=== PATIENT | female | born 1925 | race Caucasian/White ===

== ENCOUNTER 2016-05-18 11:38 | Emergency (ER) | payer MEDICARE, MEDICAID ==
[2016-05-18] MEDS ORDERED: FENTANYL 250 MCG/5 ML VIAL ONE ×2 (12:13→16:39)
[2016-05-18] MEDS ORDERED: FENTANYL 100 MCG/2 ML VIAL ONE (12:14)
--- NOTE | 2016-05-18 12:29 | RADIOLOGY REPORT ---
HISTORY: Fall COMPARISON: None. FINDINGS: Frontal view of the pelvis and left lateral hip were performed. The frontal view shows normal alignment at the sacroiliac joints and pubic symphysis. Bones of the pe lvis are unremarkable. Focused imaging of the left hip shows a nondisplaced fracture at the junction of the femoral neck and intertrochanteric region. It is minimally displaced. No dislocation. IMPRESSION: Minimally displaced fracture involving the left hip at the junction of the neck and intertrochanteric region. Report called to Dr. Adams. Final Electronic Signature: This report was electronically signed by Reji Banerjee MD on 05/18/2016 12 :27 PM. mona /
--- NOTE | 2016-05-18 12:31 | RADIOLOGY REPORT ---
HISTORY: Fall COMPARISON: None. FINDINGS: 1 view of the chest obtained. There is no consolidation. There is no pleural effusion. There is no pneumothorax. There is mild cardiomegaly. There is no abnormality of the pulmonary vessels. There is no focal lung parenchymal nodule. There is no bone lesion. IMPRESSION: Cardiomegaly without edema, effusion or pneumothorax. Final Electronic Signature: This report was electronically signed by Reji Banerjee MD on 05/18/2016 12 :28 PM. mona /
[2016-05-18 12:32] LABS: BASOPHILS 0.3 % (0.0-2.0); EOSINOPHILS 0.2 % (0.0-6.0); HEMATOCRIT 38.9 % (36.0-48.0); HEMOGLOBIN 13.2 g/dL (12.0-16.0); LYMPHOCYTES 9.9 % (20.0-40.0); LYMPHOCYTES# 0.7 X 10^3uL (0.8-3.8); MEAN CELL VOLUME 86.3 fL (80.0-100.0); MEAN CORPUSCULAR HEMOGLOBIN 29.3 pg (29.0-35.0); MEAN PLATELET VOLUME 8.4 fL (7.4-10.4); MONOCYTES 5.2 % (2.0-10.0); MONOCYTES# 0.4 X 10^3uL (0.2-1.0); NEUTROPHILS 84.4 % (54.0-75.0); NEUTROPHILS# 6.5 X 10^3uL (2.6-6.7); PLATELET COUNT 184 X 10^3uL (130-440); RED BLOOD COUNT 4.51 X 10^6uL (4.20-6.10); RED CELL DISTRIBUTION WIDTH 14.2 % (11.5-14.5); WHITE BLOOD COUNT 7.6 X 10^3uL (3.9-10.7)
[2016-05-18 12:39] LABS: BLOOD UREA NITROGEN 17 mg/dL (7-17); CALCIUM 9.7 mg/dL (8.4-10.2); CHLORIDE 104 mmol/L (98-107); CREATININE 1.1 mg/dL (0.5-1.0); GLUCOSE 145 mg/dL (70-100); SODIUM 139 mmol/L (137-145)
--- NOTE | 2016-05-18 13:26 | ER PHYSICIAN DOCUMENTATION ---
Physician Documentation [facility] Name:Tatiana Rossi Age:89 yrs Sex:Female :1925 Arrival Date:05/18/2016 Time:11:38 BedTrauma-B Private MD:Alaina Wallace ED, Chris Disposition: 05/18/16 12:48 Transfer ordered to [facility]. Diagnosis is Hip Fracture - Acute, Left, Intertrochanteric. - Reason for transfer: Higher level of care. - Accepting physician is Stephanie Prather, Hospitalist;. - Condition is Fair. - Problem is new. - Symptoms are unchanged. COBRA Form completed? Yes Transfer - Mode of Transportation Ambulance HPI: 05/18 11:45 This 89 yrs old Female presents to ER via EMS with complaints of Fall Injury. cd 11:45 Details of fall: The patient fell from an upright position, while walking. Onset: The cd symptom(s)/episode began/occurred acutely, just prior to arrival. Associated injuries: The patient sustained left hip, contusion, decreased range of motion, painful injury. Associated signs and symptoms: The patient has no apparent associated signs or symptoms, Loss of consciousness: the patient experienced no loss of consciousness. Severity of symptoms: At their worst the symptoms were moderate, in the emergency department the symptoms have improved, mildly. The patient has not experienced similar symptoms in the past. Historical: - Allergies: Morphine; constipation; chest pain; Codeine; Namenda; Cymbalta; Remeron; - Home Meds: 1. amitriptyline 10 mg oral tab 1 tab Nightly 2. prednisone oral 1 tab once daily in the morning 3. Percocet 7.5-325 mg oral tab 1 tab every 6 hours for Pain 4. gemfibrozil 600 mg oral tab 1 tab 2 times per day 30 minutes before morning and evening meal 5. omeprazole 20 mg oral cpDR 1 cap once daily 6. metoprolol tartrate 50 mg oral tab 1 tab once daily with meals 7. venlafaxine 75 mg oral cp24 1 cap once daily with food 8. amlodipine 10 mg oral tab 1 tab once daily 9. levothyroxine 75 mcg oral cap 1 cap once daily - PMHx: CHRONIC PAIN; constipation; OSTEOARTHRITIS; diverticulosis; urinary incontinence; ANXIETY; cervical spondylosis; renal artery stenosis; dyslipidemia; Coronary artery disease; AAA; left ovarian cyst; hyperlipidemia; hemmorrhoids; fatigue; malaise; - PSHx: HYSTERECTOMY; CHOLECYSTECTOMY; - Tetanus: will f/u with PCP Will f/u with PCP. - Ebola Screening: : Patient negative for fever greater than or equal to 101.5 degrees Fahrenheit, and additional compatible Ebola Virus Disease symptoms. Patient denies exposure to infectious person. Patient denies travel to an Ebola-affected area in the 21 days before illness onset. . - Immunization history: Pneumococcal vaccine is up to date, Flu Vaccine < 1 year. - Social history: Smoking status: Patient states former smoker of tobacco. ROS: 12:36 Constitutional: Negative for chills, fever, poor PO intake. cd 12:36 MS/extremity: Positive for injury or acute deformity, contusion, decreased range of motion, pain, of the left hip. 12:36 Neuro: Negative for acute changes. 12:36 All other systems are negative. Exam: 12:37 Head/Face: Normocephalic, atraumatic. cd ENT: Nares patent. No nasal discharge, no septal abnormalities noted. Tympanic membranes are normal and external auditory canals are clear. Oropharynx with no redness, swelling, or masses, exudates, or evidence of obstruction, uvula midline. Mucous membranes moist. Neck: Trachea midline, no thyromegaly or masses palpated, and no cervical lymphadenopathy. Supple, full range of motion without nuchal rigidity, or vertebral point tenderness. No Meningismus. Chest/axilla: Normal chest wall appearance and motion. Nontender with no deformity. No lesions are appreciated. Cardiovascular: Regular rate and rhythm with a normal S1 and S2. No gallops, murmurs, or rubs. Normal PMI, no JVD. No pulse deficits. Respiratory: Lungs have equal breath sounds bilaterally, clear to auscultation and percussion. No rales, rhonchi or wheezes noted. No increased work of breathing, no retractions or nasal flaring. Abdomen/GI: Soft, non-tender, with normal bowel sounds. No distension or tympany. No guarding or rebound. No evidence of tenderness throughout. Back: No spinal tenderness. No costovertebral tenderness. Full range of motion. 12:37 Skin: Warm, dry with normal turgor. Normal color with no rashes, no lesions, and no cd evidence of cellulitis. 12:37 Constitutional: The patient appears alert, awake, non-diaphoretic, well nourished, anxious, in obvious distress, moderately distressed. 12:37 Musculoskeletal/extremity: Extremities: grossly normal except: noted in the left hip: contusion, decreased ROM, pain, ROM: limited passive range of motion due to pain, in the left hip, Circulation is intact in all extremities. Sensation intact. Weight bearing: is unable to bear weight. 12:37 Neuro: Orientation: is normal, Mentation: is normal, Cranial nerves: CN II- XII are normal as tested, Motor: is normal, Sensation: is normal. Vital Signs: 11:59 BP 139 / 79; Pulse 69; Resp 16; Temp 97.6; Pulse Ox 97% on 2 lpm NC; Weight 43.54 kg; lp Height 4 ft. 11 in. (149.86 cm); Pain 8/10; 12:24 BP 154 / 77; Pulse 70; Resp 16; Pulse Ox 96% on 2 lpm NC; lp 13:09 BP 153 / 72; Pulse 69; Resp 16; Pulse Ox 92% on 2 lpm NC; lp 13:15 BP 153 / 72; Pulse 70; Resp 16; Pulse Ox 96% on 2 lpm NC; lp 11:59 Body Mass Index 19.39 (43.54 kg, 149.86 cm) lp Abingdon Coma Score: 12:37 Eye Response: spontaneous(4). Verbal Response: oriented(5). Motor Response: obeys cd commands(6). Total: 15. Trauma Score (Adult): 11:59 Eye Response: spontaneous(1); Verbal Response: oriented(1); Motor Response: obeys lp commands(2); Systolic BP: > 89 mm Hg(4); Respiratory Rate: 10 to 29 per min(4); Abingdon Score: 15; Trauma Score: 12 MDM: 11:43 Patient medically screened. cd 11:55 Data interpreted: Pulse oximetry: on room air is 87 %. Interpretation: hypoxia. Plan: cd O2 by NC applied. 12:23 EKG attached lp 12:38 Differential diagnosis: contusion, fracture, of Left Hip. cd 12:39 Data reviewed: vital signs, nurses notes, EMS record, old medical records, EKG, cd radiologic studies, plain films, and as a result, I will *Transfer Patient prescribe pain medication, Fentanyl. 12:40 Counseling: I had a detailed discussion with the patient and/or guardian regarding: the cd historical points, exam findings, and any diagnostic results supporting the discharge/admit diagnosis, lab results, radiology results, the need to transfer to another facility, for higher level of care. 12:45 Response to treatment: the patient's symptoms have mildly improved after treatment, and cd as a result, I will transfer to [facility]. The patient has a history of CAD, three stents, chronic Angina, a 3.3 cm AAA, It is best, with her comorbidities, to have her Left IT Hip Fracture repaired at [facility] where she can have Cardiology and Pulmonary consultations and ICU support if needed.. 12:46 Physician consultation: Chris Damian MD, Trauma Surgeon was called at 12:30, was cd contacted at 12:40, regarding admission, to the floor, consult, patient's condition, after a discussion of the case, a recommendation for transfer for higher level of care is made, would like consultation with . Patient will be admitted to the Medicine / Hospitalist Service with Orthopedics consulting.. 12:58 Other consultation: Full report was given to Stephanie Prather MD Hospitalist. 05/18 12:35 Order name: CBC AUTO DIF, MDIF/RMOR IF IND; Complete Time: 12:49 EDMS 05/18 12:48 Interpretation: Normal Except: NEUTROPHILS 84.4; Mild Left Shift. 05/18 12:40 Order name: BASIC METABOLIC PANEL; Complete Time: 12:49 EDMS 05/18 12:49 Interpretation: Normal Except: GLUCOSE 145; Hyperglycemia. 05/18 12:44 Order name: PROTIME/INR; Complete Time: 12:49 EDMS 05/18 12:49 Interpretation: Normal. 05/18 12:31 Order name: HIP;W/PEL 2-3 [place] [id number]; Complete Time: 12:32 EDMS 05/18 12:32 Order name: CHEST; SINGLE VIEW [id number]; Complete Time: 12:32 EDMS 05/18 11:43 Order name: Iv Saline Lock; Complete Time: 12:08 05/18 11:43 Order name: Cardiac Monitoring - Continuous; Complete Time: 12:08 04/05 11:43 Order name: Pulse Ox Continuous; Complete Time: 12:08 cd 05/18 11:44 Order name: Oxygen; Complete Time: 12:08 cd 05/18 11:44 Order name: EKG - 12 Lead; Complete Time: 12:08 cd Dispensed Medications: 12:07 Drug: fentaNYL (PF) 25 mcg; Route: IVP; Site: right forearm; lp 13:03 Follow up: Response: Pain is decreased lp Signatures: Francisca Mosley RN RN lp Main Martínez MD MD
--- NOTE | 2016-05-18 13:26 | ER NURSING DOCUMENTATION ---
Nurse's Notes [facility] Name:Tatiana Rossi Age:89 yrs Sex:Female :1925 Arrival Date:05/18/2016 Time:11:38 BedTrauma-B Private MD:Alaina Wallace Diagnosis:Hip Fracture-Acute, Left, Intertrochanteric Presentation: 05/18 11:48 Acuity: CORINNE 2 tg 11:55 Presenting complaint: Patient states: L hip pain EMS states: Fall at home with L hip lp injury. Care prior to arrival: Placed on backboard. IV initiated. Mechanism of Injury: Fall from standing position. Trauma event details: Injury occurred in the [facility]. 11:55 Method Of Arrival: EMS: 410 lp 12:18 Transition of care: Home. lp Historical: - Allergies: Morphine; constipation; chest pain; Codeine; Namenda; Cymbalta; Remeron; - Home Meds: 1. amitriptyline 10 mg oral tab 1 tab Nightly 2. prednisone oral 1 tab once daily in the morning 3. Percocet 7.5-325 mg oral tab 1 tab every 6 hours for Pain 4. gemfibrozil 600 mg oral tab 1 tab 2 times per day 30 minutes before morning and evening meal 5. omeprazole 20 mg oral cpDR 1 cap once daily 6. metoprolol tartrate 50 mg oral tab 1 tab once daily with meals 7. venlafaxine 75 mg oral cp24 1 cap once daily with food 8. amlodipine 10 mg oral tab 1 tab once daily 9. levothyroxine 75 mcg oral cap 1 cap once daily - PMHx: CHRONIC PAIN; constipation; OSTEOARTHRITIS; diverticulosis; urinary incontinence; ANXIETY; cervical spondylosis; renal artery stenosis; dyslipidemia; Coronary artery disease; AAA; left ovarian cyst; hyperlipidemia; hemmorrhoids; fatigue; malaise; - PSHx: HYSTERECTOMY; CHOLECYSTECTOMY; - Tetanus: will f/u with PCP Will f/u with PCP. - Ebola Screening: : Patient negative for fever greater than or equal to 101.5 degrees Fahrenheit, and additional compatible Ebola Virus Disease symptoms. Patient denies exposure to infectious person. Patient denies travel to an Ebola-affected area in the 21 days before illness onset. . - Immunization history: Pneumococcal vaccine is up to date, Flu Vaccine < 1 year. - Social history: Smoking status: Patient states former smoker of tobacco. Screenin:01 Abuse screen: Denies threats or abuse. Denies injuries from another. Nutritional lp screening: No deficits noted. Tuberculosis screening: No symptoms or risk factors identified. 12:18 Infectious Disease Risk None. lp Primary Survey: 11:58 Airway: patent. Breathing/Chest: Respiratory pattern: regular, Respiratory effort: lp spontaneous, Breath sounds: clear, bilaterally. Chest inspection: symmetrical rise and fall of the chest. Circulation: Cardiac rhythm: sinus rhythm Pulses: palpable right radial artery, right posterior tibial artery, left radial artery and left posterior tibial artery. Secondary Survey: 11:59 HEENT: No deficits noted. Gastrointestinal: No deficits noted. : No deficits noted. lp Musculoskeletal: Circulation, motion, and sensation intact Capillary refill < 3 seconds Range of motion limited in left hip. Assessment: 11:56 General: Appears uncomfortable, Behavior is appropriate for age. Pain: Complains of lp pain in left hip Pain does not radiate. Pain currently is 8 out of 10 on a pain scale. Pain began 1 hour ago. Neuro: Level of Consciousness is awake, alert, Oriented to person, place, event, [employer] are equal bilaterally in left leg(s) Gait is Unable to bear weight at this time. EENT: No deficits noted. Cardiovascular: No deficits noted. Respiratory: No deficits noted. GI: No deficits noted. : No deficits noted. Derm: No deficits noted. Musculoskeletal: Circulation, motion, and sensation intact Capillary refill < 3 seconds Range of motion limited in left hip Tenderness present in left hip Reports pain in left hip. 12:27 Cardiovascular: Heart tones S1 S2 Murmur Pulses are all present. Respiratory: Airway is lp patent Respiratory effort is even, unlabored, Respiratory pattern is regular, Breath sounds are clear bilaterally. Vital Signs: 11:59 BP 139 / 79; Pulse 69; Resp 16; Temp 97.6; Pulse Ox 97% on 2 lpm NC; Weight 43.54 kg; lp Height 4 ft. 11 in. (149.86 cm); Pain 8/10; 12:24 BP 154 / 77; Pulse 70; Resp 16; Pulse Ox 96% on 2 lpm NC; lp 13:09 BP 153 / 72; Pulse 69; Resp 16; Pulse Ox 92% on 2 lpm NC; lp 13:15 BP 153 / 72; Pulse 70; Resp 16; Pulse Ox 96% on 2 lpm NC; lp 11:59 Body Mass Index 19.39 (43.54 kg, 149.86 cm) lp Benedict Coma Score: 12:37 Eye Response: spontaneous(4). Verbal Response: oriented(5). Motor Response: obeys cd commands(6). Total: 15. Trauma Score (Adult): 11:59 Eye Response: spontaneous(1); Verbal Response: oriented(1); Motor Response: obeys lp commands(2); Systolic BP: > 89 mm Hg(4); Respiratory Rate: 10 to 29 per min(4); Bing Score: 15; Trauma Score: 12 ED Course: 11:39 Patient arrived in ED. lm3 11:39 Alaina Wallace is Private Physician. lm3 11:43 Main Martínez MD is Attending Physician. cd 11:48 Triage completed. tg 11:55 Francisca Mosley RN is Primary Nurse. lp 12:01 Valuables Given to family. Patient has correct armband on for positive identification. lp Placed in gown. Bed in low position. Call light in reach. Side rails up X2. 12:19 Port Xray Completed. ms 12:19 Valuables Remains with patient. lp 12:23 EKG attached lp 13:34 arranger assembler on. Pulse ox on. NIBP on. Cardiac Monitoring On for Nurse Monitoring lp only. Administered Medications: 12:07 Drug: fentaNYL (PF) 25 mcg; Route: IVP; Site: right forearm; lp 13:03 Follow up: Response: Pain is decreased lp Outcome: 12:33 [facility] lp 12:33 Condition: stable 12:33 Instructed on need for transfer 12:48 ER care complete, transfer ordered by . cd 13:25 Patient left the ED. lp 13:37 Report given to Arnulfo Mcgregor at [facility] lp Signatures: Murphy Jaramillo RN RN Francisca Mosley RN RN Main Martínez MD MD cd Strickland, Mary ms Hohua, Bre Champion lm3
== END 2016-05-18 13:25 | disposition short-term general hospital (02) ==
LOC: ER 11:38
DX: S72.142A Displaced intertrochanteric fracture of left femur, initial encounter for closed fracture (principal); S70.02XA Contusion of left hip, initial encounter; W19.XXXA Unspecified fall, initial encounter; Y93.01 Activity, walking, marching and hiking; R09.02 Hypoxemia; R73.9 Hyperglycemia, unspecified; G89.29 Other chronic pain; M19.90 Unspecified osteoarthritis, unspecified site; I25.10 Atherosclerotic heart disease of native coronary artery without angina pectoris; Z79.899 Other long term (current) drug therapy; Z99.89 Dependence on other enabling machines and devices; Z99.81 Dependence on supplemental oxygen; Z74.3 Need for continuous supervision
CPT/HCPCS: 71010; 80048; 85025; 85610; 93005; 93010; 96374; 99285; A0425; A0427

== ENCOUNTER 2016-05-25 09:31 | Inpatient (IN) | payer MEDICARE, MEDICAID ==
[2016-05-25] MEDS ORDERED: HOME MEDICATION LIST NEEDED 1 EA EACH MC ONE (11:22)
[2016-05-25] MEDS: ACETAMINOPHEN 325 MG TABLET PO PRN ×3 (14:40→23:31)
[2016-05-25] MEDS ORDERED: ACETAMINOPHEN PO PRN (15:17)
[2016-05-25] MEDS ORDERED: [UNRECOGNIZED DRUG - OTHER] PO PRN (15:17)
[2016-05-25] MEDS ORDERED: OXYCODONE HCL PO PRN (15:17)
--- NOTE | 2016-05-25 17:46 | HISTORY & PHYSICAL ---
DATE OF ADMISSION: 05/25/16 ATTENDING PHYSICIAN: Ashley Martin MD CHIEF COMPLAINT: Status post intramedullary nailing for left hip fracture in need of rehab. HISTORY OF PRESENT ILLNESS: Patient is an 89-year-old female patient, generally followed at [facility], who tripped over her dogs bed at home on 05/18/16 and was transferred to [facility] for surgical treatment of a left hip fracture. She underwent surgery on 05/19/16 with intramedullary nail. Postoperative complications seem to have been some dizziness and lightheadedness for which medications were adjusted, in particular discontinuation of Amitriptyline, and reduction in dose of Gabapentin. Her surgery was carried out at [facility] due to multiple medical comorbidities. She has done reasonably well since that time, and returns to [place] for ongoing Physical Therapy and Occupational Therapy , with the goal of returning home to live independently with the intermittent assistance of her granddaughter. She apparently has a history of chronic pain with multiple pain complaints in the past, but has by report from the [facility] Hospitalist, done fairly well in terms of pain control. Patient is a poor historian, and records were obtained both from [facility] and from her primary care provider, Lesia Wallace at [facility]. Currently the patient is resting comfortably in bed and seems to be doing quite well. She tolerated the journey up well. ALLERGIES: Morphine, Codeine (diarrhea), Namenda (diarrhea), Cymbalta (diarrhea) , Remeron (increased depression). MEDICATIONS AT DISCHARGE Oxycodone APAP 7.5-325 mg 1 tablet 4 times daily as needed. Gemfibrozil 650 mg twice daily. Pantoprazole 40 mg daily. Sucralfate 1 gram daily. Prednisone 5 mg daily. Venlafaxine ER 75 mg daily at h.s. Enoxaparin 40 mg subcutaneous daily. Melatonin 3 mg at h.s. Gabapentin 100 mg 3 times daily. Amlodipine 10 mg daily. Risperidone 0.5 mg at h.s. Levothyroxine 75 mcg p.o. daily. Acetaminophen 650 mg every 6 hours as needed and scheduled 3 times daily. MiraLax 1 packet daily. Metoprolol succinate ER 50 mg daily. PAST MEDICAL HISTORY (obtained from [facility] medical chart) 1. Chronic pain for which the patient has taken multiple medications including Percocet and Neurontin with chronic complaints of chest pressure and pain. 2. Anxiety disorder with a history of panic disorder. 3. Gastroesophageal reflux disease. 4. Hypothyroidism. 5. Hypertension. 6. Cervical spondylosis. 7. Dyslipidemia. 8. Osteoporosis. 9. Coronary artery disease without specifics. 10. Renal artery stenosis. 11. Aortic aneurysm which was evaluated during her [facility] hospitalization and found to be 4.[address] with recommendation of CT surgery evaluation as an outpatient as it had been only 3.3 cm in 2010. 12. Chronic insomnia. 13. Chronic constipation. 14. Renal insufficiency. 15. Internal hemorrhoids with a history of bleeding. PAST SURGICAL HISTORY 1. Status post intramedullary nail of left femur fracture 2016 as above. 2. Hysterectomy in 1968 for benign reasons. 3. Cholecystectomy 1968. 4. Left renal artery stent 06/2006. 5. Stent to the LAD 06/2006. FAMILY HISTORY: Somewhat vague. Mother of old age with no specific problems. Father had colon cancer history. Patient has 3 sons and 2 daughters. SOCIAL HISTORY: She is . She has a history of minimal smoking, 1-2 cigarettes daily. She has no history of illegal drug use. She drinks very little alcohol. She has 5 children as noted above and lives on her own with her dog. REVIEW OF SYSTEMS: Complains of generalized pain which apparently is a chronic issue with this patient. Today she has some headache, chest pain and leg pain and indicates all 3 areas, but looks completely comfortable. She does not have any weakness. She denies any problems swallowing. No sore throat. No visual changes. She denies any shortness of breath. She has the chest pain as noted above. No palpitations. She has no abdominal pain. She denies any problems with constipation. She denies any dysuria or hematuria. She has pain in her left thigh and hip. She denies any other joint pain at this time. She denies any lightheadedness or dizziness or changes in vision. PHYSICAL EXAMINATION VITAL SIGNS: Temperature 37.1, blood pressure 139/77, pulse 85, respiratory rate 15, O2 saturation 92% on 2 liters nasal cannula. GENERAL: Alert and appears very comfortable. HEENT: Extraocular movements are intact. Sclera are anicteric. Pupils are equal and round. Slightly miotic. Diminished activity to light. Oropharynx is moist. Tongue is midline. NECK: No jugular venous distention. No bruits. No adenopathy. No thyromegaly. LUNGS: Clear bilaterally. CARDIOVASCULAR: Regular rate and rhythm without murmurs, rubs or gallops noted. ABDOMEN: Soft, nontender. No organomegaly. No masses noted. EXTREMITIES: Dorsalis pedis pulses are 2+. Tibialis posterior pulses are 1+. Surgical incision on the left lateral thigh with phuc still in place. It is fairly long but without oozing on the dressing and minimal tender with very little swelling of the thigh. NEUROLOGIC: Well oriented but I suspect some memory issues, although I did not formally test her today. Cranial nerves are grossly intact. Motor strength is 5/ 5 in the upper extremities and 5/5 in the right lower extremity. Left lower extremity, patient was hesitant because of pain. Deep tendon reflexes are 1+ and symmetric. Toes are downgoing. DATA: Patient had a mild anemia with a hemoglobin of 11.6 on laboratory data from the hospital. ASSESSMENT AND PLAN 1. Status post intramedullary nailing of left hip fracture. Patient appears to be moving around the bed very well and will have ongoing physical therapy and occupational therapy assessments as soon as possible. Her goal is to go home independently as she was previously, and I suspect she will do well. 2. History of chronic pain with some reduction in her medication regimen from her medications at [facility] clinic, particularly because of lightheadedness and dizziness. 3. Deep vein thrombosis prophylaxis is being given with Lovenox at this time. 4. Gastroesophageal reflux disease, no complaints and patient will be continued on Pantoprazole 20 mg which is our formulary medication. 5. History of coronary artery disease without complaints of active problems. 6. History of renal artery stenosis with a stent placed and blood pressure is reasonably controlled at this time. 7. History of anxiety. Patient will be continued on her Venlafaxine and her melatonin, other drugs for sleeping have been discontinued. 8. Hypothyroidism. Will continue patient on Levoxyl at this time, but will not draw a TSH given the recent hospitalization, which may not reflect a stable TSH state. 9. Code status is full code at this time. 10. Ultimate goal is for the patient to return to her primary care physician at [facility] once she is able to be discharged. MTDD
[2016-05-25] MEDS: RISPERIDONE 0.5 MG TABLET PO SCH (20:35)
[2016-05-25] MEDS: MELATONIN 3 MG TABLET PO SCH (20:35)
[2016-05-25] MEDS: GABAPENTIN 100 MG CAPSULE PO SCH ×2 (20:35→23:28)
[2016-05-25] MEDS: VENLAFAXINE ER 75 MG CAPSULE PO SCH (20:35)
[2016-05-25] MEDS ORDERED: GABAPENTIN 100 MG CAPSULE PO SCH (21:00)
[2016-05-25] MEDS ORDERED: GEMFIBROZIL 600 MG PO SCH (21:00)
[2016-05-25] MEDS ORDERED: ACETAMINOPHEN 325 MG TABLET PO SCH (21:00)
[2016-05-25] MEDS: NON-FORMULARY MEDICATION (Sucralfate [Carafate] 1 GM) PO SCH (21:43)
[2016-05-26 06:06] LABS: BLOOD UREA NITROGEN 53 mg/dL (7-17); CALCIUM 9.6 mg/dL (8.4-10.2); CHLORIDE 101 mmol/L (98-107); CREATININE 1.1 mg/dL (0.5-1.0); GLUCOSE 116 mg/dL (70-100); POTASSIUM 5.1 mmol/L (3.5-5.1); SODIUM 136 mmol/L (137-145)
[2016-05-26] MEDS: PANTOPRAZOLE 40 MG TABLET PO SCH (06:52)
[2016-05-26] MEDS: GABAPENTIN 100 MG CAPSULE PO SCH ×3 (06:53→21:19)
[2016-05-26] MEDS: ACETAMINOPHEN 325 MG TABLET PO PRN ×3 (07:02→21:19)
[2016-05-26 07:46] LABS: BASOPHILS 0.3 % (0.0-2.0); EOSINOPHILS 2.3 % (0.0-6.0); EOSINOPHILS# 0.2 X 10^3uL (0.0-0.4); HEMATOCRIT 31.2 % (36.0-48.0); HEMOGLOBIN 10.6 g/dL (12.0-16.0); LYMPHOCYTES 19.9 % (20.0-40.0); LYMPHOCYTES# 1.5 X 10^3uL (0.8-3.8); MEAN CELL VOLUME 87.1 fL (80.0-100.0); MEAN CORPUS. HGB CONCENTRATION 33.9 g/dL (32.0-36.0); MEAN CORPUSCULAR HEMOGLOBIN 29.5 pg (29.0-35.0); MEAN PLATELET VOLUME 8.8 fL (7.4-10.4); MONOCYTES 7.5 % (2.0-10.0); MONOCYTES# 0.6 X 10^3uL (0.2-1.0); NEUTROPHILS# 5.4 X 10^3uL (2.6-6.7); PLATELET COUNT 309 X 10^3uL (130-440); RED BLOOD COUNT 3.58 X 10^6uL (4.20-6.10); RED CELL DISTRIBUTION WIDTH 13.9 % (11.5-14.5); WHITE BLOOD COUNT 7.7 X 10^3uL (3.9-10.7)
[2016-05-26] MEDS ORDERED: NORMAL SALINE 1,000 ML IV SCH (08:00)
--- NOTE | 2016-05-26 08:04 | PROGRESS NOTE: IM APSO ---
Assessment and Plan - Date of Encounter Date of Encounter: 05/26/16 (1) Hip fracture requiring operative repair Status: Acute Assessment and plan: Seems to be progressing well, continue efforts with PT and OT. Pain control adequate. Patient demonstrates some impulsivity and has required placement of bed and chair alarms for safety. Current Visit: Yes (2) Hypertension Status: Chronic Assessment and plan: Remains controlled with current medication regimen, continue same. Current Visit: Yes (3) Renal insufficiency Status: Acute Assessment and plan: Patient has a sudden elevation in her BUN which suggests dehydration. She will be given 500 ml of NS today. I am also holding her Gemfibrozil, which may be unsuitable in light of her kidney function. There is a notation in her previous charting that she had an episode of severe renal insufficiency in the past, so this is likely acute on chronic, particularly in light of her renal artery stent, and needs to be closely monitored. Current Visit: Yes (4) Dementia Status: Suspected Assessment and plan: Patient is taking Risperidone for unclear reasons, and demonstrates some difficulty with recall. She is also hard of hearing, which may be contributing. No behavioral issues other than impulsivity at this time. I have suggested that the staff move the patient closer to the nursing station when possible, and that we consider video monitoring if needed. Current Visit: Yes - Time Spent With Patient Total time spent with greater than 50% in coordination of care (as documented) at patient's floor/unit and/or counseling patient: 25 - 35 minutes Estimated anticipated discharge: next week if doing well IM: PN Subjective Interval history: Reports that she did not sleep well last night, but nursing comment is that patient was asleep every time she was checked. Patient has ongoing central chest pain of unknown etiology, steady, "aching," unrelated to eating or to activity. General: confusion, pain HEENT: no headache Cardiovascular: chest pain Respiratory: no SOB Gastrointestinal: no abdominal pain Musculoskeletal: pain (left hip, mild) Neurological: no headache IM: PN Objective Exam - I&O/Vital Signs I&O: Intake & Output 05/25/16 05/26/16 05/26/16 21:59 05:59 13:59 Intake Total 300 Output Total 900 Balance -600 Weight 43.998 kg Intake: Oral 300 Output: Urine 900 Other: Urine Color Yellow Stool Size Moderate Stool Characteristics Soft Green Voiding Method Toilet Toilet Toilet # Voids 1 # Bowel Movements 1 Vital Signs: Last Vital Signs Temp 36.1 C L 05/26/16 06:48 Pulse 71 05/26/16 06:48 Resp 16 05/26/16 06:48 BP 133/65 05/26/16 06:48 Pulse Ox 94 05/26/16 06:48 Oxygen Flow Rate 2 Oxygen Delivery Method Nasal Cannula - Constitutional General appearance: Present: thin - Head Head exam: Present: normal inspection - Eye Eye exam: Present: EOMI Pupils: Present: PERRL - ENT ENT exam: Present: mucous membranes moist - Respiratory Respiratory exam: Present: CTAB - Cardiovascular Cardiovascular exam: Present: RRR - GI/Abdominal GI/Abdominal exam: Present: normal bowel sounds, soft. Absent: tenderness - Extremities Exam Extremities exam: Present: tenderness (left lateral thigh). Absent: calf tenderness, edema - Psychiatric Psychiatric exam: Present: normal affect - Skin Skin exam: Present: other (skin tear right elbow, ecchymosis right inner thigh) - Lab Labs: Laboratory Last Values WBC 7.7 X 10^3uL (3.9-10.7) 05/26/16 05:00 RBC 3.58 X 10^6uL (4.20-6.10) L 05/26/16 05:00 Hgb 10.6 g/dL (12.0-16.0) L 05/26/16 05:00 Hct 31.2 % (36.0-48.0) L 05/26/16 05:00 MCV 87.1 fL (80.0-100.0) 05/26/16 05:00 MCH 29.5 pg (29.0-35.0) 05/26/16 05:00 MCHC 33.9 g/dL (32.0-36.0) 05/26/16 05:00 RDW 13.9 % (11.5-14.5) 05/26/16 05:00 Plt Count 309 X 10^3uL (130-440) 05/26/16 05:00 MPV 8.8 fL (7.4-10.4) 05/26/16 05:00 Neutrophils % 70.0 % (54.0-75.0) 05/26/16 05:00 Lymphocytes % 19.9 % (20.0-40.0) L 05/26/16 05:00 Eosinophils % 2.3 % (0.0-6.0) 05/26/16 05:00 Basophils % 0.3 % (0.0-2.0) 05/26/16 05:00 Neutrophils # 5.4 X 10^3uL (2.6-6.7) 05/26/16 05:00 Lymphocytes # 1.5 X 10^3uL (0.8-3.8) 05/26/16 05:00 Monocytes 7.5 % (2.0-10.0) 05/26/16 05:00 Monocytes # 0.6 X 10^3uL (0.2-1.0) 05/26/16 05:00 Eosinophils # 0.2 X 10^3uL (0.0-0.4) 05/26/16 05:00 Basophils # 0.0 X 10^3uL (0.0-0.1) 05/26/16 05:00 Sodium 136 mmol/L (137-145) L 05/26/16 05:00 Potassium 5.1 mmol/L (3.5-5.1) D 05/26/16 05:00 Chloride 101 mmol/L (98-107) 05/26/16 05:00 Carbon Dioxide 25 mmol/L (22-30) 05/26/16 05:00 BUN 53 mg/dL (7-17) H D 05/26/16 05:00 Creatinine 1.1 mg/dL (0.5-1.0) H 05/26/16 05:00 GFR Calculation Not Reportable 05/26/16 05:00 Glucose 116 mg/dL (70-100) H 05/26/16 05:00 Calcium 9.6 mg/dL (8.4-10.2) 05/26/16 05:00 Quality Questions - VTE Prophylaxis Assessment VTE Present on Admission?: No Patient at risk for venous thromboembolism?: Yes VTE Risk Level: High Risk Pharmaceutical VTE prophylaxis contraindication reason: N/A- VTE prophylaxsis ordered Mechanical VTE prophylaxis contraindication reason: not indicated (1) Hip fracture requiring operative repair Qualifiers: Encounter type: initial encounter Fracture type: closed Laterality: left Qualified Code(s): S72.002A - Fracture of unspecified part of neck of left femur , initial encounter for closed fracture (2) Hypertension Qualifiers: 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
[2016-05-26] MEDS: AMLODIPINE BESYLATE 5 MG TABLET PO SCH (08:15)
[2016-05-26] MEDS: predniSONE 5 MG TABLET PO SCH (08:16)
[2016-05-26] MEDS: POLYETHYLENE GLYCOL 3350 17 GM POWD.PACK PO SCH (08:17)
[2016-05-26] MEDS: ENOXAPARIN SODIUM 40 MG/0.4 ML SYR SUBCUT SCH (08:17)
[2016-05-26] MEDS: NON-FORMULARY MEDICATION (Sucralfate [Carafate] 1 GM) PO SCH (08:18)
[2016-05-26] MEDS: LEVOTHYROXINE 75 MCG TABLET PO SCH (08:21)
[2016-05-26] MEDS ORDERED: predniSONE 1 MG TABLET PO SCH (09:00)
[2016-05-26] MEDS ORDERED: NON-FORMULARY MEDICATION (Omeprazole [Omeprazole] 20 MG) PO SCH (09:00)
[2016-05-26] MEDS ORDERED: NORMAL SALINE FLUSH 250 ML ONE (13:02)
[2016-05-26] MEDS: SUCRALFATE 1 GM TAB PO SCH ×2 (16:34→21:19)
[2016-05-26 19:47] LABS: URINE APPEARANCE CLEAR; URINE BACTERIA NONE SEEN (<10/hpf); URINE BILIRUBIN NEGATIVE (NEGATIVE); URINE BLOOD NEGATIVE (NEGATIVE); URINE COLOR YELLOW; URINE GLUCOSE NORMAL (NEGATIVE); URINE KETONE NEGATIVE (NEGATIVE); URINE LEUKOCYTE ESTERASE NEGATIVE (NEGATIVE); URINE MUCUS NONE SEEN (Up to 25%); URINE NITRITE NEGATIVE (NEGATIVE); URINE PROTEIN NEGATIVE (NEG - TRACE); URINE RBC NONE SEEN (0-5/hpf); URINE SQUAMOUS EPITHELIAL CELL 0-5/hpf (<= 15/hpf); URINE UROBILINOGEN 0.2mg/dL (Normal) (NEG-1mg/dL); URINE WBC NONE SEEN (0-4/hpf)
[2016-05-26] MEDS: MELATONIN 3 MG TABLET PO SCH (21:19)
[2016-05-26] MEDS: VENLAFAXINE ER 75 MG CAPSULE PO SCH (21:19)
[2016-05-26] MEDS: RISPERIDONE 0.5 MG TABLET PO SCH (21:19)
[2016-05-27 05:56] LABS: BLOOD UREA NITROGEN 49 mg/dL (7-17); CALCIUM 9.2 mg/dL (8.4-10.2); CHLORIDE 107 mmol/L (98-107); CREATININE 1.1 mg/dL (0.5-1.0); GLUCOSE 102 mg/dL (70-100); POTASSIUM 4.8 mmol/L (3.5-5.1); SODIUM 137 mmol/L (137-145)
[2016-05-27] MEDS: PANTOPRAZOLE 40 MG TABLET PO SCH (06:40)
[2016-05-27] MEDS: GABAPENTIN 100 MG CAPSULE PO SCH ×3 (06:40→21:10)
[2016-05-27] MEDS: LEVOTHYROXINE 75 MCG TABLET PO SCH (06:40)
[2016-05-27] MEDS: ACETAMINOPHEN 325 MG TABLET PO PRN ×3 (06:41→23:28)
[2016-05-27] MEDS: AMLODIPINE BESYLATE 5 MG TABLET PO SCH (08:56)
[2016-05-27] MEDS: SUCRALFATE 1 GM TAB PO SCH ×2 (08:56→21:09)
[2016-05-27] MEDS: predniSONE 5 MG TABLET PO SCH (08:57)
[2016-05-27] MEDS: ENOXAPARIN SODIUM 40 MG/0.4 ML SYR SUBCUT SCH (08:57)
[2016-05-27] MEDS: POLYETHYLENE GLYCOL 3350 17 GM POWD.PACK PO SCH (08:58)
--- NOTE | 2016-05-27 21:00 | PROGRESS NOTE: IM APSO ---
Assessment and Plan - Date of Encounter Date of Encounter: 05/27/16 (1) Hip fracture requiring operative repair Status: Acute Assessment and plan: I am pleased that the patient seems to be doing well, and is able to cooperate with activities. She may be able to go home towards the end of next week. Current Visit: Yes (2) Hypertension Status: Chronic Assessment and plan: Remains controlled, continue medications as is. Current Visit: Yes (3) Renal insufficiency Status: Acute Assessment and plan: BUN and creatinine mildly improved. Hold Gemfibrozil and monitor. Lovenox adjusted to renal dosing of 30mg daily. Current Visit: Yes (4) Dementia Status: Suspected Assessment and plan: Seems to have adapted well to the swingbed setting. Current Visit: Yes - Time Spent With Patient Total time spent with greater than 50% in coordination of care (as documented) at patient's floor/unit and/or counseling patient: less than 15 minutes Estimated anticipated discharge: next week if doing well IM: PN Subjective Interval history: Continues to do well, seems to be cooperating with PT and OT, and has been moved to a room closer to the nurses station because of safety concerns regarding impulsivity. I have had 500ml of NS administered, due to a BUN of 53 and evidence for dehydration, with slightly decreased sodium, and mildly increased creatinine. Additionally, Gemfibrozil was discontinued, due to concerns of renal insufficiency. General: pain HEENT: no headache Cardiovascular: chest pain (central aching pain, complaint for many years. ) Respiratory: no SOB Gastrointestinal: no abdominal pain Musculoskeletal: pain (left hip, mild) Neurological: no headache IM: PN Objective Exam - I&O/Vital Signs I&O: Intake & Output 05/27/16 05/27/16 05/27/16 05:59 13:59 21:59 Intake Total 1100 1578 Output Total 850 1600 Balance 250 -22 Intake: Oral 1100 1578 Output: Urine 850 1600 Other: Urine Appearance Clear Clear Clear Urine Color Pale Pale Yellow Stool Size Moderate Small Stool Characteristics Soft Formed Green Voiding Method Toilet Toilet Toilet Vital Signs: Last Vital Signs Temp 36.7 C 05/27/16 19:00 Pulse 87 05/27/16 19:00 Resp 20 05/27/16 19:00 BP 146/69 05/27/16 19:00 Pulse Ox 95 05/27/16 19:00 Oxygen Flow Rate 2 Oxygen Delivery Method Room Air - Constitutional General appearance: Present: thin - Head Head exam: Present: normal inspection - Eye Eye exam: Present: EOMI Pupils: Present: PERRL - ENT ENT exam: Present: mucous membranes moist - Respiratory Respiratory exam: Present: CTAB - Cardiovascular Cardiovascular exam: Present: RRR - GI/Abdominal GI/Abdominal exam: Present: normal bowel sounds, soft. Absent: tenderness - Extremities Exam Extremities exam: Present: tenderness (left lateral thigh). Absent: calf tenderness, edema - Psychiatric Psychiatric exam: Present: normal affect - Skin Skin exam: Present: other (skin tear right elbow, ecchymosis right inner thigh) - Lab Labs: Laboratory Last Values WBC 7.7 X 10^3uL (3.9-10.7) 05/26/16 05:00 RBC 3.58 X 10^6uL (4.20-6.10) L 05/26/16 05:00 Hgb 10.6 g/dL (12.0-16.0) L 05/26/16 05:00 Hct 31.2 % (36.0-48.0) L 05/26/16 05:00 MCV 87.1 fL (80.0-100.0) 05/26/16 05:00 MCH 29.5 pg (29.0-35.0) 05/26/16 05:00 MCHC 33.9 g/dL (32.0-36.0) 05/26/16 05:00 RDW 13.9 % (11.5-14.5) 05/26/16 05:00 Plt Count 309 X 10^3uL (130-440) 05/26/16 05:00 MPV 8.8 fL (7.4-10.4) 05/26/16 05:00 Neutrophils % 70.0 % (54.0-75.0) 05/26/16 05:00 Lymphocytes % 19.9 % (20.0-40.0) L 05/26/16 05:00 Eosinophils % 2.3 % (0.0-6.0) 05/26/16 05:00 Basophils % 0.3 % (0.0-2.0) 05/26/16 05:00 Neutrophils # 5.4 X 10^3uL (2.6-6.7) 05/26/16 05:00 Lymphocytes # 1.5 X 10^3uL (0.8-3.8) 05/26/16 05:00 Monocytes 7.5 % (2.0-10.0) 05/26/16 05:00 Monocytes # 0.6 X 10^3uL (0.2-1.0) 05/26/16 05:00 Eosinophils # 0.2 X 10^3uL (0.0-0.4) 05/26/16 05:00 Basophils # 0.0 X 10^3uL (0.0-0.1) 05/26/16 05:00 Sodium 137 mmol/L (137-145) 05/27/16 05:25 Potassium 4.8 mmol/L (3.5-5.1) 05/27/16 05:25 Chloride 107 mmol/L (98-107) 05/27/16 05:25 Carbon Dioxide 25 mmol/L (22-30) 05/27/16 05:25 BUN 49 mg/dL (7-17) H 05/27/16 05:25 Creatinine 1.1 mg/dL (0.5-1.0) H 05/27/16 05:25 GFR Calculation Not Reportable 05/27/16 05:25 Glucose 102 mg/dL (70-100) H 05/27/16 05:25 Calcium 9.2 mg/dL (8.4-10.2) 05/27/16 05:25 Urine Color Yellow 05/26/16 Unknown Urine Appearance Clear 05/26/16 Unknown Urine pH 6.0 (5-7) 05/26/16 Unknown Ur Specific [place] 1.010 (0.001-1.035) 05/26/16 Unknown Urine Protein Negative (NEG - TRACE) 05/26/16 Unknown Urine Ketones Negative (NEGATIVE) 05/26/16 Unknown Urine Blood Negative (NEGATIVE) 05/26/16 Unknown Urine Nitrate Negative (NEGATIVE) 05/26/16 Unknown Urine Bilirubin Negative (NEGATIVE) 05/26/16 Unknown Urine Urobilinogen 0.2mg/dl (normal) (NEG-1mg/dL) 05/26/16 Unknown Ur Leukocyte Esterase Negative (NEGATIVE) 05/26/16 Unknown Urine RBC None seen (0-5/hpf) 05/26/16 Unknown Urine WBC None seen (0-4/hpf) 05/26/16 Unknown Ur Squamous Epith Cells 0-5/hpf (<= 15/hpf) 05/26/16 Unknown Urine Bacteria None seen (<10/hpf) 05/26/16 Unknown Urine Mucus None seen (Up to 25%) 05/26/16 Unknown Urine Glucose Normal (NEGATIVE) 05/26/16 Unknown (1) Hip fracture requiring operative repair Qualifiers: Encounter type: initial encounter Fracture type: closed Laterality: left Qualified Code(s): S72.002A - Fracture of unspecified part of neck of left femur , initial encounter for closed fracture (2) Hypertension Qualifiers: 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
[2016-05-27] MEDS: VENLAFAXINE ER 75 MG CAPSULE PO SCH (21:10)
[2016-05-27] MEDS: RISPERIDONE 0.5 MG TABLET PO SCH (21:11)
[2016-05-27] MEDS: MELATONIN 3 MG TABLET PO SCH (21:11)
[2016-05-28] MEDS: PANTOPRAZOLE 40 MG TABLET PO SCH (06:34)
[2016-05-28] MEDS: GABAPENTIN 100 MG CAPSULE PO SCH ×3 (06:34→21:25)
[2016-05-28] MEDS: LEVOTHYROXINE 75 MCG TABLET PO SCH (06:34)
[2016-05-28] MEDS: ENOXAPARIN SODIUM 30 MG/0.3 ML SYR SUBCUT SCH (09:33)
[2016-05-28] MEDS: POLYETHYLENE GLYCOL 3350 17 GM POWD.PACK PO SCH (09:33)
[2016-05-28] MEDS: AMLODIPINE BESYLATE 5 MG TABLET PO SCH (09:33)
[2016-05-28] MEDS: predniSONE 5 MG TABLET PO SCH (09:33)
[2016-05-28] MEDS: SUCRALFATE 1 GM TAB PO SCH ×2 (09:33→21:25)
[2016-05-28] MEDS: ACETAMINOPHEN 325 MG TABLET PO PRN ×2 (10:31→23:58)
[2016-05-28] MEDS: VENLAFAXINE ER 75 MG CAPSULE PO SCH (21:24)
[2016-05-28] MEDS: RISPERIDONE 0.5 MG TABLET PO SCH (21:24)
[2016-05-28] MEDS: MELATONIN 3 MG TABLET PO SCH (21:25)
[2016-05-29] MEDS: GABAPENTIN 100 MG CAPSULE PO SCH ×3 (06:33→21:17)
[2016-05-29] MEDS: PANTOPRAZOLE 40 MG TABLET PO SCH (06:33)
[2016-05-29] MEDS: LEVOTHYROXINE 75 MCG TABLET PO SCH (06:33)
[2016-05-29] MEDS: predniSONE 5 MG TABLET PO SCH (08:32)
[2016-05-29] MEDS: SUCRALFATE 1 GM TAB PO SCH ×2 (08:32→21:17)
[2016-05-29] MEDS: POLYETHYLENE GLYCOL 3350 17 GM POWD.PACK PO SCH (08:32)
[2016-05-29] MEDS: ACETAMINOPHEN 325 MG TABLET PO PRN (08:32)
[2016-05-29] MEDS: AMLODIPINE BESYLATE 5 MG TABLET PO SCH (08:32)
[2016-05-29] MEDS: ENOXAPARIN SODIUM 30 MG/0.3 ML SYR SUBCUT SCH (08:32)
[2016-05-29] MEDS: VENLAFAXINE ER 75 MG CAPSULE PO SCH (21:17)
[2016-05-29] MEDS: MELATONIN 3 MG TABLET PO SCH (21:17)
[2016-05-29] MEDS: RISPERIDONE 0.5 MG TABLET PO SCH (21:17)
[2016-05-30] MEDS: ACETAMINOPHEN 325 MG TABLET PO PRN ×3 (00:06→20:55)
[2016-05-30] MEDS: LEVOTHYROXINE 75 MCG TABLET PO SCH (05:33)
[2016-05-30] MEDS: GABAPENTIN 100 MG CAPSULE PO SCH ×2 (05:34→20:56)
[2016-05-30] MEDS: PANTOPRAZOLE 40 MG TABLET PO SCH (05:34)
[2016-05-30 06:52] LABS: BASOPHILS 0.4 % (0.0-2.0); EOSINOPHILS 1.2 % (0.0-6.0); EOSINOPHILS# 0.1 X 10^3uL (0.0-0.4); HEMATOCRIT 32.2 % (36.0-48.0); HEMOGLOBIN 10.8 g/dL (12.0-16.0); LYMPHOCYTES 22.7 % (20.0-40.0); LYMPHOCYTES# 2.3 X 10^3uL (0.8-3.8); MEAN CELL VOLUME 86.8 fL (80.0-100.0); MEAN CORPUS. HGB CONCENTRATION 33.6 g/dL (32.0-36.0); MEAN CORPUSCULAR HEMOGLOBIN 29.1 pg (29.0-35.0); MEAN PLATELET VOLUME 8.4 fL (7.4-10.4); MONOCYTES 7.5 % (2.0-10.0); MONOCYTES# 0.8 X 10^3uL (0.2-1.0); NEUTROPHILS 68.2 % (54.0-75.0); PLATELET COUNT 379 X 10^3uL (130-440); RED BLOOD COUNT 3.71 X 10^6uL (4.20-6.10); WHITE BLOOD COUNT 10.2 X 10^3uL (3.9-10.7)
[2016-05-30 07:12] LABS: BLOOD UREA NITROGEN 43 mg/dL (7-17); CALCIUM 9.2 mg/dL (8.4-10.2); CHLORIDE 106 mmol/L (98-107); GLUCOSE 86 mg/dL (70-100); POTASSIUM 4.6 mmol/L (3.5-5.1); SODIUM 138 mmol/L (137-145)
--- NOTE | 2016-05-30 08:00 | PROGRESS NOTE: IM APSO ---
Assessment and Plan - Date of Encounter Date of Encounter: 05/30/16 (1) Hip fracture requiring operative repair Status: Acute Assessment and plan: Has made excellent progress. Considering discharge this week, with follow up with Orthopedics and staple removal. Will need Lovenox through June 06, and has a mild postoperative anemia and I will start some iron and vitamin C. Patient states she is fatigued. Current Visit: Yes (2) Hypertension Status: Chronic Current Visit: Yes (3) Renal insufficiency Status: Acute Assessment and plan: Has been mainly well controlled, mild elevation today. Continuing on prehospitalization medications. Current Visit: Yes (4) Dementia Status: Suspected Assessment and plan: I do not have clear documentation regarding the need for Risperidone, although I have obtained the old records. No evidence for behavioral disturbance in general. Current Visit: Yes - Time Spent With Patient Total time spent with greater than 50% in coordination of care (as documented) at patient's floor/unit and/or counseling patient: 16-24 minutes Estimated anticipated discharge: Mon or IM: PN Subjective Interval history: Patient appears to have done well over the weekend, and is ambulating 150 feet and making good progress to becoming independent for transfer and ambulation using a walker. She remains anemic, and would probably benefit from some iron supplementation. General: fatigue, pain (minimal today) HEENT: no headache Cardiovascular: no chest pain Respiratory: no SOB Gastrointestinal: no abdominal pain Musculoskeletal: pain (left hip, mild to minimal) Neurological: no headache IM: PN Objective Exam - I&O/Vital Signs I&O: Intake & Output 05/29/16 05/30/16 05/30/16 21:59 05:59 13:59 Intake Total 620 400 Output Total 500 900 Balance 120 -500 Weight 43.998 kg Intake: Oral 500 400 Oral Supplement 120 Output: Urine 500 900 Other: Urine Appearance Clear Clear Urine Color Yellow Yellow Stool Size Moderate Moderate Stool Characteristics Soft Soft Voiding Method Toilet Toilet # Voids 2 # Bowel Movements 1 Vital Signs: Last Vital Signs Temp 36.6 C 05/30/16 06:03 Pulse 78 05/30/16 06:03 Resp 17 05/30/16 06:03 BP 150/80 05/30/16 06:03 Pulse Ox 91 05/30/16 06:03 Oxygen Flow Rate 2 Oxygen Delivery Method Room Air - Constitutional General appearance: Present: thin - Head Head exam: Present: normal inspection - Eye Eye exam: Present: EOMI Pupils: Present: PERRL - ENT ENT exam: Present: mucous membranes moist - Respiratory Respiratory exam: Present: CTAB - Cardiovascular Cardiovascular exam: Present: RRR - GI/Abdominal GI/Abdominal exam: Present: normal bowel sounds, soft. Absent: tenderness - Extremities Exam Extremities exam: Present: tenderness (left lateral thigh). Absent: calf tenderness, edema - Psychiatric Psychiatric exam: Present: normal affect - Skin Skin exam: Present: other (skin tear right elbow, ecchymosis right inner thigh) - Lab Labs: Laboratory Last Values WBC 10.2 X 10^3uL (3.9-10.7) 05/30/16 06:00 RBC 3.71 X 10^6uL (4.20-6.10) L 05/30/16 06:00 Hgb 10.8 g/dL (12.0-16.0) L 05/30/16 06:00 Hct 32.2 % (36.0-48.0) L 05/30/16 06:00 MCV 86.8 fL (80.0-100.0) 05/30/16 06:00 MCH 29.1 pg (29.0-35.0) 05/30/16 06:00 MCHC 33.6 g/dL (32.0-36.0) 05/30/16 06:00 RDW 14.0 % (11.5-14.5) 05/30/16 06:00 Plt Count 379 X 10^3uL (130-440) 05/30/16 06:00 MPV 8.4 fL (7.4-10.4) 05/30/16 06:00 Neutrophils % 68.2 % (54.0-75.0) 05/30/16 06:00 Lymphocytes % 22.7 % (20.0-40.0) 05/30/16 06:00 Eosinophils % 1.2 % (0.0-6.0) 05/30/16 06:00 Basophils % 0.4 % (0.0-2.0) 05/30/16 06:00 Neutrophils # 7.0 X 10^3uL (2.6-6.7) H 05/30/16 06:00 Lymphocytes # 2.3 X 10^3uL (0.8-3.8) 05/30/16 06:00 Monocytes 7.5 % (2.0-10.0) 05/30/16 06:00 Monocytes # 0.8 X 10^3uL (0.2-1.0) 05/30/16 06:00 Eosinophils # 0.1 X 10^3uL (0.0-0.4) 05/30/16 06:00 Basophils # 0.0 X 10^3uL (0.0-0.1) 05/30/16 06:00 Sodium 138 mmol/L (137-145) 05/30/16 06:00 Potassium 4.6 mmol/L (3.5-5.1) 05/30/16 06:00 Chloride 106 mmol/L (98-107) 05/30/16 06:00 Carbon Dioxide 23 mmol/L (22-30) 05/30/16 06:00 BUN 43 mg/dL (7-17) H 05/30/16 06:00 Creatinine 1.0 mg/dL (0.5-1.0) 05/30/16 06:00 GFR Calculation Not Reportable 05/30/16 06:00 Glucose 86 mg/dL (70-100) 05/30/16 06:00 Calcium 9.2 mg/dL (8.4-10.2) 05/30/16 06:00 Urine Color Yellow 05/26/16 Unknown Urine Appearance Clear 05/26/16 Unknown Urine pH 6.0 (5-7) 05/26/16 Unknown Ur Specific [place] 1.010 (0.001-1.035) 05/26/16 Unknown Urine Protein Negative (NEG - TRACE) 05/26/16 Unknown Urine Ketones Negative (NEGATIVE) 05/26/16 Unknown Urine Blood Negative (NEGATIVE) 05/26/16 Unknown Urine Nitrate Negative (NEGATIVE) 05/26/16 Unknown Urine Bilirubin Negative (NEGATIVE) 05/26/16 Unknown Urine Urobilinogen 0.2mg/dl (normal) (NEG-1mg/dL) 05/26/16 Unknown Ur Leukocyte Esterase Negative (NEGATIVE) 05/26/16 Unknown Urine RBC None seen (0-5/hpf) 05/26/16 Unknown Urine WBC None seen (0-4/hpf) 05/26/16 Unknown Ur Squamous Epith Cells 0-5/hpf (<= 15/hpf) 05/26/16 Unknown Urine Bacteria None seen (<10/hpf) 05/26/16 Unknown Urine Mucus None seen (Up to 25%) 05/26/16 Unknown Urine Glucose Normal (NEGATIVE) 05/26/16 Unknown (1) Hip fracture requiring operative repair Qualifiers: Encounter type: initial encounter Fracture type: closed Laterality: left Qualified Code(s): S72.002A - Fracture of unspecified part of neck of left femur , initial encounter for closed fracture (2) Hypertension Qualifiers: 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
[2016-05-30] MEDS: AMLODIPINE BESYLATE 5 MG TABLET PO SCH (08:26)
[2016-05-30] MEDS: POLYETHYLENE GLYCOL 3350 17 GM POWD.PACK PO SCH (08:26)
[2016-05-30] MEDS: ENOXAPARIN SODIUM 30 MG/0.3 ML SYR SUBCUT SCH (08:26)
[2016-05-30] MEDS: predniSONE 5 MG TABLET PO SCH (08:26)
[2016-05-30] MEDS: ASCORBIC ACID 500 MG TABLET PO SCH (08:26)
[2016-05-30] MEDS: CHOLECALCIFEROL 1,000 UNIT CAPSULE PO SCH (08:28)
[2016-05-30] MEDS: SUCRALFATE 1 GM TAB PO SCH ×2 (08:28→20:56)
[2016-05-30] MEDS: FERROUS SULFATE 325 MG TABLET PO SCH (14:29)
[2016-05-30] MEDS: RISPERIDONE 0.5 MG TABLET PO SCH (20:55)
[2016-05-30] MEDS: MELATONIN 3 MG TABLET PO SCH (20:55)
[2016-05-30] MEDS: VENLAFAXINE ER 75 MG CAPSULE PO SCH (20:55)
[2016-05-31] MEDS: PANTOPRAZOLE 40 MG TABLET PO SCH (06:12)
[2016-05-31] MEDS: LEVOTHYROXINE 75 MCG TABLET PO SCH (06:13)
[2016-05-31] MEDS: ENOXAPARIN SODIUM 30 MG/0.3 ML SYR SUBCUT SCH (08:00)
[2016-05-31] MEDS: predniSONE 5 MG TABLET PO SCH (08:00)
[2016-05-31] MEDS: SUCRALFATE 1 GM TAB PO SCH ×2 (08:00→20:19)
[2016-05-31] MEDS: AMLODIPINE BESYLATE 5 MG TABLET PO SCH (08:00)
[2016-05-31] MEDS: POLYETHYLENE GLYCOL 3350 17 GM POWD.PACK PO SCH (08:00)
[2016-05-31] MEDS: ASCORBIC ACID 500 MG TABLET PO SCH (08:01)
[2016-05-31] MEDS: CHOLECALCIFEROL 1,000 UNIT CAPSULE PO SCH (08:01)
--- NOTE | 2016-05-31 11:55 | RADIOLOGY REPORT ---
Three views of the left hip are compared with prior films dated 05/18/2016. There has been interval reduction and internal fixation of the intertrochanteric fracture, which is secured with a narciso and screw. Hardware is intact and in appropriate position. No other change is identified. IMPRESSION: Interval reduction and internal fixation of the left intertrochanteric fracture. [facility]
[2016-05-31] MEDS: FERROUS SULFATE 325 MG TABLET PO SCH (12:39)
[2016-05-31] MEDS: ACETAMINOPHEN 325 MG TABLET PO PRN ×2 (13:48→20:23)
--- NOTE | 2016-05-31 16:09 | CONSULTATION ---
DATE OF CONSULTATION: 05/31/16 REFERRING PHYSICIAN: Ashley Martin MD INFORMATION BROKER: Mehran Babin MD CHIEF COMPLAINT: Postoperative follow up for left hip fracture. HISTORY OF PRESENT ILLNESS: The patient is an 89-year-old female who sustained an intratrochanteric fracture of her left proximal femur. At the time of her injury, it was felt she was not safe to undergo surgery at this facility and therefore was transferred to [place] for definitive treatment. There she underwent intramedullary fixation of her left proximal femur. She did very well and was transferred back up to [facility] this week. PAST MEDICAL HISTORY 1. Chronic pain and chronic narcotic use. 2. Anxiety disorder. 3. Gastroesophageal reflux disease. 4. Hypothyroidism. 5. Hypertension. 6. Hyperlipidemia. 7. Osteoporosis. 8. Coronary artery disease. 9. Aortic aneurysm. 10. Renal insufficiency. MEDICATIONS Oxycodone. Gemfibrozil. Pantoprazole. Sucralfate. Penicillin. Venlafaxine. Lovenox. Melatonin. Gabapentin. Amlodipine. Risperidone. Levothyroxine. MiraLax. Metoprolol. ALLERGIES: Morphine, Codeine, Namenda, Cymbalta, Remeron. FAMILY HISTORY: Noncontributory. SOCIAL HISTORY: The patient normally lives here in [place] and was an independent ambulator prior to her injury. PHYSICAL EXAMINATION GENERAL: Frail-appearing senior female in no apparent distress. Alert and oriented. LOWER EXTREMITY: Two incision sites over the lateral aspect of the proximal thigh. Both incision sites are healed without drainage. Likewise, there is no more erythema. She has mild diffuse swelling in the left thigh. She does move her knee and ankle well and is otherwise neurovascularly intact. She is mildly tender to palpation over the proximal thigh. IMAGING: Plain radiographs of the hip reveal a short intramedullary fixation device which appears to be possibly a gamma nail. The device is well positioned and the fracture is essentially in anatomic alignment. There is not yet significant evidence of healing. There is no other acute abnormality. IMPRESSION: The patient is doing well following intramedullary fixation for a left intratrochanteric fracture of the proximal femur. PLAN: We can go ahead and follow her with you. She should continue her current weightbearing status, which is partial weightbearing. We will plan on checking repeat radiographs again in about 2 weeks to see if at that time there is more evidence of healing. Thank you again for asking me to evaluate this patient. TER[facility]
[2016-05-31] MEDS: GABAPENTIN 100 MG CAPSULE PO SCH (20:19)
[2016-05-31] MEDS: VENLAFAXINE ER 75 MG CAPSULE PO SCH (20:19)
[2016-05-31] MEDS: RISPERIDONE 0.5 MG TABLET PO SCH (20:19)
[2016-05-31] MEDS: MELATONIN 3 MG TABLET PO SCH (20:19)
[2016-06-01] MEDS: LEVOTHYROXINE 75 MCG TABLET PO SCH (05:58)
[2016-06-01] MEDS: PANTOPRAZOLE 40 MG TABLET PO SCH (05:58)
[2016-06-01 06:24] VITALS: BP 138/69; PULSE 71; RESP 20; TEMP 98.1; O2SAT 90
--- NOTE | 2016-06-01 07:48 | DC SUMMARY: IM Note ---
Discharge Summary: IM/Peds Provider: Date of Admission: 05/25/16 Admitting Provider: JILLIAN KU MD Attending Provider: JILLIAN KU MD Discharging Provider: JILLIAN KU MD Primary Care Provider: Discharge Date: 06/01/16 Consults: 05/25/16 11:22 Nutrition/Dietary Consult [CONS] Routine Reason: Swingbed Admission Protocol 05/31/16 07:31 Orthopedic Consult [CONS] Routine Reason: Status post IM nail for left hip fracture, now at day 12 post op. In need of Ortho evaluation and staple removal if cleared. - Diagnosis (1) Hip fracture requiring operative repair Status: Acute Qualifiers: Encounter type: initial encounter Fracture type: closed Laterality : left Qualified Code(s): S72.002A - Fracture of unspecified part of neck of left femur, initial encounter for closed fracture (2) Hypertension Status: Chronic Qualifiers: Hypertension type: renovascular hypertension Qualified Code(s): I15.0 - Renovascular hypertension (3) Renal insufficiency Status: Acute (4) Dementia Status: Suspected Qualifiers: Dementia behavioral disturbance: without behavioral disturbance (5) Abdominal aneurysm without mention of rupture Status: Acute Hospital Course: Patient was admitted for ongoing rehabilitation after a left hip fracture and IM nail repair by Dr. Nguyen at [facility]. Her postoperative course had been complicated by dizziness and orthostasis, and several of her home medications were discontinued/held/reduced in dose. In particular, her chronic Percocet use was discontinued. Dr. Jenkins, Orthopedist in [place], has kindly assumed care of the patient for Orthopedic follow up, since the patient has no transportation ability to the [place] to see Dr. Nguyen. Xrays were done, showing the hip repair to be doing well, and she will follow up with Dr. Jenkins in about two weeks. During her [facility] stay, the patient has done very well, and is ambulating with a walker. She will have ongoing HHC with PT, and will continue on Lovenox until June 06 per her surgeon. The patient has had very little pain while here, using minimal amounts of Oxycodone. This has caused me to question her chronic Percocet use, which was at a very high dose for an 89 year old with poor renal function, and certainly should not be continued. When I spoke with the patient's daughter about her mother, the first concern of the daughter was her mother's Percocet prescription , which I explained that her mother did not at all seem to need, and, frankly, I am concerned about the daughter's insistence in this regard. From reading the chart notes obtained from Yadiel, the patient has some chronic, unexplained central chest "aching" and some headaches, not warranting chronic narcotic use. I would recommend a welfare check for this patient when she is home. The plan is for the granddaughter to care for the patient in her home. Patient's hypertension has remained well controlled. Her renal function is poor , and she was given 500ml of normal saline on arrival, for evident dehydration. I have discontinued her Gemfibrozil, which is contraindicated with poor renal function, so that patient may need a different choice of lipid controlling medication. I assume the patient has not tolerated statins in the past. Patient is chronically taking Risperidone at , which I did not change. She did not exhibit any behavioral disturbances while here. Patient was noted to have an abdominal aortic aneurysm , infrarenal, at 4.9cm per CT at [facility], which had increased in size from 2011. Recommendation to have surgery evaluation after discharge. - Time Spent with Patient Total time spent providing and/or coordinating discharge services: Time with patient DS: Greater than 30 minutes Discharge - Patient/Caregiver Discharge Instructions Activity Level: WBAT Diet: Regular Follow up: JOYCE JENKINS MD [ACTIVE (Staff Physician)] - 06/06/16 8:45 am YADIEL,Provider [] - 06/09/16 9:00 am (PT HAS AN APPT WITH DAPHNEY BENITEZ ON @ 9AM ) Overall discharge status: patient is progressing back to baseline Home Medications: Ferrous Sulfate [Ferrous Sulfate*] 325 mg PO DAILY@12 #30 tablet Enoxaparin Sodium [LOVENOX 30mg/0.3mL*] 30 mg SUBCUT DAILY #6 syr Gabapentin [Neurontin*] 100 mg PO TID@0600,1400,2200 #90 capsule oxyCODONE HCL IR [Oxy Ir*] 5 mg PO QID PRN #30 tablet PRN Reason: Pain, Severe Able To Take Po Orders: Home Health Care Location: Determined By Patient Disposition: HOME, SELF-CARE Discharge Summary Data - Medication History Medication History: Home Medications Amlodipine Besylate [Norvasc*] 10 mg PO DAILY 05/25/16 Gabapentin [Neurontin*] 200 mg PO TID@0600,1400,2200 05/25/16 Gemfibrozil [Lopid] 600 mg PO BID 05/25/16 Levothyroxine [Synthroid*] 75 mcg PO DAILY 05/25/16 Magnesium Hydroxide [Milk of Magnesia*] 15 - 30 ml PO HS 05/25/16 Melatonin [Melatonin*] 3 mg PO HS 05/25/16 Pantoprazole [Pantoprazole Sodium*] 20 mg PO DAILY 05/25/16 Risperidone [Risperidone*] 0.5 mg PO HS 05/25/16 Sennosides/Docusate Sodium [Lucia-Colace] 1 - 2 tab PO BID 05/25/16 Sucralfate [Carafate] 1 gm PO TID@0600,1400,2200 05/25/16 Venlafaxine ER [Effexor Xr*] 75 mg PO HS 05/25/16 metoprolol SUCC ER [Toprol Xl*] 50 mg PO DAILY 05/25/16 oxyCODONE HCL/ACETAMINOPHEN [Percocet 5-325 mg Tablet] 1 each PO Q6H PRN predniSONE [Deltasone*] 5 mg PO DAILY 05/25/16 Inpatient Medications 05/25/16 11:22 Acetaminophen [Tylenol] 650 mg PO Q6H PRN 05/25/16 16:12 oxyCODONE HCL IR [Oxy Ir] 5 mg PO QID PRN 05/25/16 21:00 Melatonin 3 mg PO HS Risperidone [Risperdal] 0.5 mg PO HS Venlafaxine ER [Effexor Xr] 75 mg PO HS 05/26/16 06:30 Pantoprazole [Protonix] 20 mg PO BEFORE BREAKFAST 05/26/16 09:00 Amlodipine Besylate [Norvasc] 10 mg PO DAILY Levothyroxine [Synthroid] 75 mcg PO DAILY@30 Polyethylene Glycol 3350 [miraLAX] 17 gm PO DAILY metoprolol SUCC ER [topROL XL] 50 mg PO DAILY predniSONE [Deltasone] 5 mg PO DAILY 05/26/16 16:00 Sucralfate [Carafate] 1 gm PO BID 05/28/16 09:00 Enoxaparin Sodium [Lovenox] 30 mg SUBCUT DAILY 05/30/16 09:00 Ascorbic Acid [Vitamin C] 500 mg PO DAILY Cholecalciferol [Vitamin D3] 1,000 unit PO DAILY 05/30/16 12:00 Ferrous Sulfate 325 mg PO DAILY@12 05/30/16 21:00 Gabapentin [Neurontin] 100 mg PO HS Procedures and tests throughout hospitalization: Completed Lab Orders 05/26/16 UA W/ MICRO -CULTURE IF IND [URINE] Routine 05/26/16 05:00 BASIC METABOLIC PANEL [CHEM] AMDRAW CBC AUTO DIF, MDIF/RMOR IF IND [HEM] AMDRAW 05/27/16 05:25 BASIC METABOLIC PANEL [CHEM] AMDRAW 05/30/16 06:00 BASIC METABOLIC PANEL [CHEM] AMDRAW CBC AUTO DIF, MDIF/RMOR IF IND [HEM] AMDRAW Completed Imaging Orders 05/31/16 07:32 HIP;W/PEL 2-3 [place] [address] [RAD] Routine Pending Orders 05/25/16 11:22 Admit: Swing Bed Routine Activity: Ambulate with Assist TID Cleanse minor skin tears w/NS PRN Cover minor skin tears with PRN Obtain weight Q7D Oxygen by Nasal Cannula 2 L/MIN Resuscitation Status Routine Titrate Oxygen TITRATE B/W 90-95% Vital Signs QSHIFT VS Wedge cushion for positioning PRN Curing Press Operator Consult [CM] Routine Acetaminophen [Tylenol] 650 mg PO Q6H PRN Physical Therapy Eval and Treatment [PT] Routine 05/25/16 11:23 Occupation Therapy Eval and Treat [OT] Routine 05/25/16 16:12 oxyCODONE HCL IR [Oxy Ir] 5 mg PO QID PRN 05/25/16 21:00 Melatonin 3 mg PO HS Risperidone [Risperdal] 0.5 mg PO HS Venlafaxine ER [Effexor Xr] 75 mg PO HS 05/25/16 Lunch Regular [DIET] 05/26/16 06:30 Pantoprazole [Protonix] 20 mg PO BEFORE BREAKFAST 05/26/16 09:00 Amlodipine Besylate [Norvasc] 10 mg PO DAILY Levothyroxine [Synthroid] 75 mcg PO DAILY@0630 Polyethylene Glycol 3350 [miraLAX] 17 gm PO DAILY metoprolol SUCC ER [topROL XL] 50 mg PO DAILY predniSONE [Deltasone] 5 mg PO DAILY 05/26/16 09:30 Occupational Therapy Plan of Care [OT] Routine 05/26/16 13:16 Ensure Plus Supplement BID 05/26/16 16:00 Sucralfate [Carafate] 1 gm PO BID 05/28/16 09:00 Enoxaparin Sodium [Lovenox] 30 mg SUBCUT DAILY 05/30/16 09:00 Ascorbic Acid [Vitamin C] 500 mg PO DAILY Cholecalciferol [Vitamin D3] 1,000 unit PO DAILY 05/30/16 12:00 Ferrous Sulfate 325 mg PO DAILY@12 05/30/16 21:00 Gabapentin [Neurontin] 100 mg PO HS 05/31/16 07:31 Orthopedic Consult [CONS] Routine IM: Discharge Physical Exam - I&O/Vital Signs I&O: Intake & Output 05/31/16 06/01/16 06/01/16 21:59 05:59 13:59 Intake Total 120 Balance 120 Intake: Oral Supplement 120 Vital Signs: Last Vital Signs Temp 36.7 C 06/01/16 06:23 Pulse 71 06/01/16 06:23 Resp 20 06/01/16 06:23 BP 138/69 06/01/16 06:23 Pulse Ox 90 06/01/16 06:23 Oxygen Flow Rate 0 Oxygen Delivery Method Room Air - Constitutional General appearance: Present: thin - Head Head exam: Present: normal inspection - Eye Eye exam: Present: EOMI Pupils: Present: PERRL - ENT ENT exam: Present: mucous membranes moist - Respiratory Respiratory exam: Present: CTAB - Cardiovascular Cardiovascular exam: Present: RRR - GI/Abdominal GI/Abdominal exam: Present: normal bowel sounds, soft. Absent: tenderness - Extremities Exam Extremities exam: Present: tenderness (left lateral thigh). Absent: calf tenderness, edema - Psychiatric Psychiatric exam: Present: normal affect - Skin Skin exam: Present: other (small skin tear right elbow, some fading ecchymosis inner right thigh)
[2016-06-01] MEDS: AMLODIPINE BESYLATE 5 MG TABLET PO SCH (09:03)
[2016-06-01] MEDS: SUCRALFATE 1 GM TAB PO SCH (09:03)
[2016-06-01] MEDS: predniSONE 5 MG TABLET PO SCH (09:04)
[2016-06-01] MEDS: CHOLECALCIFEROL 1,000 UNIT CAPSULE PO SCH (09:05)
[2016-06-01] MEDS: ASCORBIC ACID 500 MG TABLET PO SCH (09:05)
[2016-06-01] MEDS: POLYETHYLENE GLYCOL 3350 17 GM POWD.PACK PO SCH (09:05)
[2016-06-01] MEDS: ENOXAPARIN SODIUM 30 MG/0.3 ML SYR SUBCUT SCH (09:05)
== END 2016-06-01 08:02 | disposition home or self-care (01) | DRG 561 ==
LOC: IN 14:00 → EDBD 14:00 → IN 05-26 08:40
PROVIDERS: ADMIT Internal Medicine; ATTEND Internal Medicine
DX: S72.142D Displaced intertrochanteric fracture of left femur, subsequent encounter for closed fracture with routine healing (principal); F41.8 Other specified anxiety disorders; E03.9 Hypothyroidism, unspecified; E78.5 Hyperlipidemia, unspecified; N18.9 Chronic kidney disease, unspecified; I13.10 Hypertensive heart and chronic kidney disease without heart failure, with stage 1 through stage 4 chronic kidney disease, or unspecified chronic kidney disease; G47.00 Insomnia, unspecified; K59.00 Constipation, unspecified; M81.0 Age-related osteoporosis without current pathological fracture; I71.4 Abdominal aortic aneurysm, without rupture; M47.892 Other spondylosis, cervical region; Z79.899 Other long term (current) drug therapy
CPT/HCPCS: 36415; 80048; 81001; 85025; J1650; J7030; J7512

== ENCOUNTER 2016-07-27 09:43 | Emergency (ER) | payer MEDICARE, MEDICAID ==
[2016-07-27] MEDS ORDERED: KETOROLAC TROMETHAMINE 30 MG/ML VIAL ONE (12:05)
--- NOTE | 2016-07-27 12:30 | ER NURSING DOCUMENTATION ---
Nurse's Notes [facility] Name:Tatiana Rossi Age:89 yrs Sex:Female :1925 Arrival Date:07/27/2016 Time:09:43 Bed4 Private MD:Alaina Wallace Diagnosis:Lower Extremity Pain-: Unknown etiology Presentation: 07/27 09:48 Acuity: CORINNE 3 lp 09:55 Presenting complaint: Patient states: L leg pain. Transition of care: Home. Notified ED lp Physician of Dr. Martínez notified. 09:55 Method Of Arrival: Private Vehicle lp Triage Assessment: 09:58 General: Appears in no apparent distress, Behavior is appropriate for age. Pain: lp Complains of pain in lateral aspect of left thigh Pain currently is 6 out of 10 on a pain scale. EENT: No deficits noted. Neuro: Level of Consciousness is awake, alert, Oriented to person, place, time, event, Plant Mechanic are equal bilaterally Weakness in left leg(s). Cardiovascular: Capillary refill < 3 seconds Heart tones S1 S2. Respiratory: Breath sounds are clear bilaterally. GI: No deficits noted. : No deficits noted. Derm: No deficits noted. Musculoskeletal: Circulation, motion, and sensation intact Capillary refill Range of motion limited in left hip. Historical: - Allergies: Morphine; Codeine; Namenda; Cymbalta; Remeron; - Home Meds: 1. amitriptyline 10 mg oral tab 1 tab Nightly 2. prednisone oral 1 tab once daily in the morning 3. Percocet 7.5-325 mg oral tab 1 tab every 6 hours for Pain 4. gemfibrozil 600 mg oral tab 1 tab 2 times per day 30 minutes before morning and evening meal 5. omeprazole 20 mg oral cpDR 1 cap once daily 6. metoprolol tartrate 50 mg oral tab 1 tab once daily with meals 7. venlafaxine 75 mg oral cp24 1 cap once daily with food 8. amlodipine 10 mg oral tab 1 tab once daily 9. levothyroxine 75 mcg oral cap 1 cap once daily - PMHx: CHRONIC PAIN; constipation; OSTEOARTHRITIS; diverticulosis; urinary incontinence; ANXIETY; cervical spondylosis; renal artery stenosis; dyslipidemia; Coronary artery disease; AAA; left ovarian cyst; hyperlipidemia; hemmorrhoids; fatigue; malaise; Hip Fracture - Acute, Left, Intertrochanteric (May 18, 2016); - PSHx: HYSTERECTOMY; CHOLECYSTECTOMY; - Tetanus: < 10 years. - Ebola Screening: : Patient negative for fever greater than or equal to 101.5 degrees Fahrenheit, and additional compatible Ebola Virus Disease symptoms. Patient denies exposure to infectious person. Patient denies travel to an Ebola-affected area in the 21 days before illness onset. . - Immunization history: Pneumococcal vaccine is up to date, Flu Vaccine >1 year. - Social history: Smoking status: Patient uses tobacco products, current some day smoker. Screenin:00 Infectious Disease Risk None. Abuse screen: Denies threats or abuse. Denies injuries lp from another. Nutritional screening: No deficits noted. Assessment: 10:00 See Triage Assessment done by same RN. lp Vital Signs: 09:59 BP 136 / 73; Pulse 76; Resp 16; Temp 98.0(TE); Pulse Ox 94% on R/A; Weight 44.45 kg; lp Height 4 ft. 11 in. (149.86 cm); Pain 6/10; 12:19 BP 119 / 66; Pulse 71; Resp 16; Pulse Ox 96% on R/A; lp 09:59 Body Mass Index 19.79 (44.45 kg, 149.86 cm) lp ED Course: 09:44 Patient arrived in ED. ds 09:44 Alaina Wallace is Private Physician. ds 09:48 Ally Larry, RN is Primary Nurse. st 09:48 Triage completed. lp 10:[address] Martínez notified. lp 10:00 Valuables Remains with patient Patient has correct armband on for positive lp identification. Placed in gown. Bed in low position. Call light in reach. Side rails up X 1. 10:14 Main Martínez MD is Attending Physician. cd 10:52 Patient moved to [facility]. mk 10:55 Patient moved back from [facility]. mk 17:47 Other attached lp 18:03 Other attached lp Administered Medications: 11:54 Drug: Toradol 15 mg; Route: IM; Site: right deltoid; lp 12:19 Follow up: Response: No adverse reaction; Pain is decreased lp Outcome: 12:17 Discharge ordered by MD. cd 12:19 Discharged to home via wheelchair. lp 12:19 Condition: good 12:19 Instructed on discharge instructions, follow up and referral plans. medication usage. 12:29 Patient left the ED. lp 07/28 13:33 Discharge F/U Call: Unable to reach: non-working number sj Signatures: Ally Larry RN Francisca Patel RN RN ashley Goldstein, Tania, Reg Reg Main Strickland MD MD cd Kimbro, Marcy mk Norman, David dnn Janzen, Sarah sj
--- NOTE | 2016-07-27 12:30 | ER PHYSICIAN DOCUMENTATION ---
Physician Documentation [facility] Name:Tatiana Rossi Age:89 yrs Sex:Female :1925 Arrival Date:07/27/2016 Time:09:43 Bed4 Private MD:Alaina Wallace ED, Chris Disposition: 07/27/16 12:17 Discharged to Home/Self Care. Impression: Lower Extremity Pain - : Unknown etiology. - Condition is Fair. - Discharge Instructions: MUSCLE ACHING - MYALGIAS. - Medical Reconciliation form form. - Follow up: Private Physician; When: 2 - 3 days; Reason: Recheck today's complaints, Continuance of care. - Problem is an ongoing problem. - Symptoms have improved. - Notes: Continue taking Percocet 7.5mg by mouth every 6 hours for pain. Aply ice packs. Take Alleve one tab with food twice a day for next few days Use walker and follow up with your Orthopedic Surgeon in 1 - 2 days. HPI: 07/27 10:00 This 89 yrs old Female presents to ER via Private Vehicle with complaints of cd Leg Pain - LEFT. 10:00 The patient presents with pain, that is acute. The complaints affect the left upper cd thigh and left quadriceps. Context: The problem was sustained at home, resulted from an unknown cause, the patient can partially bear weight, uses a walker. Onset: The symptom(s)/episode began/occurred acutely, 6 day(s) ago. Associated signs and symptoms: The patient has no apparent associated signs or symptoms. Severity of symptoms: At their worst the symptoms were moderate, in the emergency department the symptoms are unchanged. The patient has not experienced similar symptoms in the past. Patient had a left HIP FX and ORIF by Dr. Nguyen at [facility] in May 2016. She was doing fine until recently when she started to have Left hip and thigh pain going into her knee. No trauma.. Historical: - Allergies: Morphine; Codeine; Namenda; Cymbalta; Remeron; - Home Meds: 1. amitriptyline 10 mg oral tab 1 tab Nightly 2. prednisone oral 1 tab once daily in the morning 3. Percocet 7.5-325 mg oral tab 1 tab every 6 hours for Pain 4. gemfibrozil 600 mg oral tab 1 tab 2 times per day 30 minutes before morning and evening meal 5. omeprazole 20 mg oral cpDR 1 cap once daily 6. metoprolol tartrate 50 mg oral tab 1 tab once daily with meals 7. venlafaxine 75 mg oral cp24 1 cap once daily with food 8. amlodipine 10 mg oral tab 1 tab once daily 9. levothyroxine 75 mcg oral cap 1 cap once daily - PMHx: CHRONIC PAIN; constipation; OSTEOARTHRITIS; diverticulosis; urinary incontinence; ANXIETY; cervical spondylosis; renal artery stenosis; dyslipidemia; Coronary artery disease; AAA; left ovarian cyst; hyperlipidemia; hemmorrhoids; fatigue; malaise; Hip Fracture - Acute, Left, Intertrochanteric (May 18, 2016); - PSHx: HYSTERECTOMY; CHOLECYSTECTOMY; - Tetanus: < 10 years. - Ebola Screening: : Patient negative for fever greater than or equal to 101.5 degrees Fahrenheit, and additional compatible Ebola Virus Disease symptoms. Patient denies exposure to infectious person. Patient denies travel to an Ebola-affected area in the 21 days before illness onset. . - Immunization history: Pneumococcal vaccine is up to date, Flu Vaccine >1 year. - Social history: Smoking status: Patient uses tobacco products, current some day smoker. ROS: 10:00 Cardiovascular: Negative for chest pain, palpitations, edema and pleuritic pain. cd Respiratory: Negative for shortness of breath, dyspnea on exertion, cough, sputum production, wheezing, hemoptysis and pleuritic chest pain. Abdomen/GI: Negative for abdominal pain, nausea, vomiting, diarrhea, constipation, distension, melena, hematochezia and hematemesis. Back: Negative for injury, pain or muscle spasms. Skin: Negative for injury, rash, itching and discoloration. 10:00 Neuro: Negative for headache, weakness, numbness, tingling, and seizure. cd 10:00 Constitutional: Negative for chills, fever. 10:00 MS/extremity: Positive for decreased range of motion, pain, Negative for injury or acute deformity, deformity, ecchymosis, erythema, paresthesias, swelling, tingling. 10:00 All other systems are negative. Exam: Cardiovascular: Regular rate and rhythm with a normal S1 and S2. No gallops, murmurs, or rubs. Normal PMI, no JVD. No pulse deficits. Respiratory: Lungs have equal breath sounds bilaterally, clear to auscultation and percussion. No rales, rhonchi or wheezes noted. No increased work of breathing, no retractions or nasal flaring. Abdomen/GI: Soft, non-tender, with normal bowel sounds. No distension or tympany. No guarding or rebound. No evidence of tenderness throughout. Back: No spinal tenderness. No costovertebral tenderness. Full range of motion. 10:00 Skin: Warm, dry with normal turgor. Normal color with no rashes, no lesions, and no cd evidence of cellulitis. 10:00 Constitutional: The patient appears alert, awake, non-diaphoretic, non-toxic, well developed, well nourished, anxious, in obvious distress, moderately distressed. 10:00 Musculoskeletal/extremity: Extremities: grossly normal except: noted in the lateral aspect of left thigh and left quadriceps and left upper thigh and left hip: decreased ROM, pain, ROM: the patient is contracted, Circulation is intact in all extremities. Sensation intact. Weight bearing: can bear weight with assistance only, uses walker. 10:00 Neuro: Exam negative for acute changes. Vital Signs: 09:59 BP 136 / 73; Pulse 76; Resp 16; Temp 98.0(TE); Pulse Ox 94% on R/A; Weight 44.45 kg; lp Height 4 ft. 11 in. (149.86 cm); Pain 6/10; 12:19 BP 119 / 66; Pulse 71; Resp 16; Pulse Ox 96% on R/A; lp 09:59 Body Mass Index 19.79 (44.45 kg, 149.86 cm) lp MDM: 10:00 Differential diagnosis: dislocation, closed fracture, contusion, DVT, Arterial Disease, cd Orthopedic Hardware problem. 10:14 Patient medically screened. cd 10:30 Data interpreted: Pulse oximetry: on room air is 96 %. Interpretation: normal. cd Counseling: I had a detailed discussion with the patient and/or guardian regarding: the historical points, exam findings, and any diagnostic results supporting the discharge/admit diagnosis, radiology results, the need for outpatient follow up, for a recheck, for a referral to a specialist, a orthopedic surgeon, to return to the emergency department if symptoms worsen or persist or if there are any questions or concerns that arise at home. 12:00 Data reviewed: vital signs, nurses notes, old medical records, radiologic studies, cd doppler, plain films, and as a result, I will discharge patient, initiate a consult, with an orthopedic surgeon, Send patient to Dr. Nguyen, Orthopedic Surgeon on Monday for evaluation for possible Total Hip.. 12:05 Response to treatment: the patient's symptoms have markedly improved after treatment, cd the patient's condition has returned to base line, and as a result, I will discharge patient. 17:47 Other attached lp 18:03 Other attached lp 07/27 18:43 Order name: US EXT LOWER LEFT [id number] EDMS 07/27 18:44 Order name: FEMUR; [address] [id number] EDMS Dispensed Medications: 11:54 Drug: Toradol 15 mg; Route: IM; Site: right deltoid; lp 12:19 Follow up: Response: No adverse reaction; Pain is decreased lp Signatures: Ally Larry RN RN st Pavlish, Lena, RN RN lp Daley, Chris, MD MD cd
--- NOTE | 2016-07-27 17:41 | US REPORT ---
Routine venous duplex examination of the major deep veins of the left leg demonstrates no primary or secondary evidence of deep venous thrombosis. IMPRESSION: Examination is negative for major deep venous thrombosis in the left leg. MTDD
--- NOTE | 2016-07-27 17:49 | RADIOLOGY REPORT ---
Six views of the left femur are compared with prior films dated 05/31/2016. Again noted is hardware securing the intratrochanteric fracture. There has been interval superior migration of the femoral head screw which has penetrated the superior aspect of the femoral head. The hardware otherwise appears intact. No other abnormality is identified. IMPRESSION: Superior migration of the femoral head screw as described. The findings were personally reviewed with Dr. Martínez on 07/27/2016 at 1315 hours. [facility]
== END 2016-07-27 12:30 | disposition home or self-care (01) ==
LOC: ER 09:43
DX: M79.652 Pain in left thigh (principal); M25.552 Pain in left hip; S72.142S Displaced intertrochanteric fracture of left femur, sequela; Z98.890 Other specified postprocedural states; I25.10 Atherosclerotic heart disease of native coronary artery without angina pectoris; Z79.899 Other long term (current) drug therapy
CPT/HCPCS: 73552; 96372; 99283; 99284; J1885